=== PATIENT | female | born 1995 | race Caucasian/White ===

== ENCOUNTER 2023-09-12 07:24 | Inpatient (IN) ==
[2023-09-12] MEDS ORDERED: OXYTOCIN 30 UNITS/NSS 30 UNITS/500 ML BAG IV PRN ×2 (08:21→22:14)
[2023-09-12] MEDS ORDERED: CALCIUM CARBONATE 500 MG CHEWABLE TAB PO PRN (08:21)
[2023-09-12] MEDS ORDERED: LIDOCAINE 1% LOCAL 20 ML VIAL INFIL PRN (08:21)
[2023-09-12] MEDS ORDERED: ACETAMINOPHEN 325 MG TAB PO PRN ×2 (08:21→22:14)
[2023-09-12 08:43] LABS: Hematocrit (blood only) 36.2 % (37.0-47.0); Hemoglobin 11.7 g/dl (12.0-16.0); Mean Corpuscular Hemoglobin 27.1 pg (25.0-34.0); Mean Corpuscular Hgb Conc 32.3 g/dL (32.0-36.0); Mean Platelet Volume 10.4 fL (9.4-12.4); Platelet Count 226 K/uL (130-400); RDW Coefficient of Variation 14.7 % (11.5-14.5); RDW Standard Deviation 44.8 fL (36.4-46.3); Red Blood Count 4.31 M/uL (4.20-5.40); White Blood Count 13.16 K/ul (4.8-10.8)
[2023-09-12] MEDS: DINOPROSTONE 10 MG INSERT PV ONE (08:48)
--- NOTE | 2023-09-12 08:54 | History & Physical Report ---
Date of Service September 12, 2023 Assessment & Plan (1) Post-term , 40-42 weeks of gestation: Plan: 28-year-old G1, P0 at 40 weeks and 2 days of gestation presenting today for induction of labor, Vital signs stable afebrile, heart rate reassuring, GBS positive, Cervix unfavorable, Discussed the findings and recommended cervical ripening with Cervidil, she accepted and it was placed in posterior fornix. Start penicillin in active labor, Continue to monitor closely, All questions were answered. (2) Obesity affecting in third trimester, antepartum: (3) GBS (group B Streptococcus carrier), +RV culture, currently : Admission and Anticipated Discharge Date Admission Date: September 12, 2023 History of Present Illness Primary Care Provider: NO PCP Patient is a 28-year-old G1, P0 at 40 weeks and 2 days of gestation who was scheduled for induction of labor for postdates and obesity during . Her has been uncomplicated except GBS positive. She denies medical problems, surgeries, history of STDs, tobacco/alcohol/drug use. She denies contractions, leakage of fluid, vaginal bleeding. She reports good movements. Allergies Allergy/AdvReac Type Severity Reaction Status Date / Time Sulfa (Sulfonamide Allergy Rash Verified 09/12/23 08:18 Antibiotics) Home Medications Medication Instructions Recorded Confirmed Type vits no.124-ferrous fum 1 tab PO DAILY 09/01/23 09/12/23 History 27 mg iron-folic acid 800 mcg tablet ( Vitamin) Patient History Medical History Collar bone fracture age 13 Surgical History Hx of tympanostomy tubes as a child [place] teeth removed age 16 Family History Grandmother (Maternal) Myocardial infarction Social History Smoking Status: Former smoker Tobacco Type: E-cigarettes / Vaping Hx Alcohol Use: No Hx Substance Use: No Preferred Language: Norwegian Communication Ability: Effective State Highway Police Officer Required: No Beliefs That Will Affect Care: None marital status: Single Current Living Situation: Significant Other Assistive Devices: None Review of Systems as per Subjective / HPI Physical Exam Constitutional: WD/WN, vitals as above well developed, well nourished and comfortable (Pleasant lady, smiling all the time) Gastrointestinal (Abdomen): normal bowel sounds, soft, nontender, no hepatosplenomegaly (Gravid, [place] 7 to 8 pounds) Genitourinary: normal external appearance OB Exam Abdomen: + vertex Manual OB Exam: + cervical dilation 1 cm, + cervical effacement 30% and + station -2 OB Exam Monitor Tracing: + external uterine monitor used and + category I Results & Data Vital Signs (Past 12 Hours) Vital Signs Temp Pulse Resp BP 09/12/23 08:19 107 H 09/12/23 08:19 141/87 H 09/12/23 08:03 96 H 09/12/23 08:03 127/86 09/12/23 07:49 36.5 C 109 H 22 130/87 09/12/23 07:47 109 H 130/87 Laboratory Results Lab Results 09/12/23 Range/Units 08:30 WBC 13.16 H (4.8-10.8) K/ul RBC 4.31 (4.20-5.40) M/uL Hgb 11.7 L (12.0-16.0) g/dl Hct 36.2 L (37.0-47.0) % MCV 84.0 (80.0-100.0) fL MCH 27.1 (25.0-34.0) pg MCHC 32.3 (32.0-36.0) g/dL RDW Std Deviation 44.8 (36.4-46.3) fL RDW Coeff of Royer 14.7 H (11.5-14.5) % Plt Count 226 (130-400) K/uL MPV 10.4 (9.4-12.4) fL
--- OUTSIDE RECORDS SUMMARY | 2023-09-12 09:43 | External Medical Summary | Summary of Care ---
Author Name Unknown Organization [facility] Address [address] [facility] [place] [address] Phone [phone] Care Team Providers Care Repairer Maintenance Building Name Role Phone Tracy Sim Primary Care Provider Reason for Visit * Reason Comments Return Visit Non Stress Test Encounter Details Date Type Department Care Team (Late st Contact Info) Description 09/01/2023 2:15 PM EDT Office Visit Gynecology/Obstetri cs [facility] [address] [place] [address] Arin Thomas PA-C [address] [place] [address] [place] [phone] [place] Non Stress Tests Ana Laura [address] [place] [phone] Encounter for supervision of normal first in third trimester*; Class II obesity; Current every day vaping; Group B streptococcal infection in Allergies Active Allergy Reactions Criticality Noted Date Comments Bactrim Flushing 01/17/2011 documented as of this encounter (statuses as of 09/01/2023) Medications Medication Sig Dispensed Refills Start Date End Date Status CLARITIN 10 MG PO TABS as needed 0 Active Complete Oral Capsule Therapy Pack Take by mouth. 0 Active Azelaic Acid 15 % External Gel (Finacea)Indications: Acne, unspecified acne type After skin is thoroughly washed and patted dry, gently but thoroughly massage a thin film of azelaic acid gel into the affected area twice daily 50 g 1 05/24/2023 Active Breast Pump Dispense double electric breast pump. Dx:Z39.1 1 Each 0 08/04/2023 Active documented as of this encounter (statuses as of 09/01/2023) Active Problems Problem Noted Date Diagnosed Date Group B streptococcal infection in Normal , first 02/07/2023 Class II obesity 02/07/2023 Overview: Pre-gravid BMI 35.78 Early glucola ordered Growth q4wks, NST weekly at 37 weeks Current every day vaping 02/07/2023 Overview: About 10 times day. Uses disposable vape pens. Recommended cessation in . Encouraged her to cut back and quit entirely. Transient alteration of awareness 01/10/2011 Estimated Date of Delivery Comme nts Yes 09/10/2023 Based on Ultraso und documented as of this encounter (statuses as of 09/01/2023) Immunizations Name Administration Dates Next Due TDAP (age 10 and older)(Boostrix) 06/19/2023 documented as of this encounter Social History Tobacco Use Types Packs/Day Years Used Date Smoking Tobacco: Every Day Cigarettes Vaporizer Smokeless Tobacco: Never Alcohol Use Standard Drinks/Week Comments Not Currently 0 (1 standard drink = 0.6 oz pur e alcohol) Hunger Vital Sign Answer Date Recorded Within the past 12 months, y ou worried that your food would run out before you got the money to buy more. Patient declined Within the past 12 months, t he food you bought just didn't last and you didn't have money to get more. Patient declined [place] Depression Scale Answer Date Recorded [place] Depression Scale Total 4 08/16/2023 The thought of harming myself has occurred to me . Never 08/16/2023 Estimated Date of Delivery Comme nts Yes 09/10/2023 Based on Ultraso und Sex and Gender Information Value Date Recorded Sex Assigned at Female 01/23/2023 6:27 PM EDT Gender Identity Female 01/23/2023 6:27 PM EDT Sexual Orientation Straight 01/23/2023 6: 27 PM EDT Job Start Date Occupation Industry Not on file Not on file Not on file documented as of this encounter Last Filed Vital Signs Vital Sign Reading Time Taken Comments Blood Pressure - - Pulse - - Temperature - - Respiratory Rate - - Oxygen Saturation - - Inhaled Oxygen Concentration - - Weight 114.8 kg (253 lb) 09/01/2023 1:56 PM EDT Height - - Body Mass Index 42.1 08/16/2023 11:33 AM EDT documented in this encounter Progress Notes * Arin Thomas PA-C - 09/01/2023 2:32 PM EDT Erica Combs is a 28 year old female here for her routine OB appointment and NST at 38w5d Her Estimated Date of Delivery: 09/10/23 REVIEW OF SYSTEMS She affirms movement. She states she is still feeling regular movement, but feels the kicks have been visual associate in intensity. She expresses no concerns at this time. Denies vaginal bleeding, LOF,regular contractions, N/V, headaches, vision changes, chest pain, deep calf pain/swelling, RUQ pain. PHYSICAL EXAM Filed Vitals: 09/01/23 1356 Weight: 114.8 kg (253 lb) +FHT see NST result note ASSESSMENT assessment with Non-stress Test completed on 09/01/2023 at 38w5d weeks gestation for indication of class II obesity. Reviewed and interpreted strip with Dr. Nuzhat MD. heart baseline: 170 bpm Variability: Moderate Decelerations: Variable decelerations noted. Accelerations: present Contractions: None NST start time: 1347 NST stop time: 1419 NST strip reviewed, interpreted, and approved by OB provider, Arin Thomas PA-C and Dr. Nuzhat MD. Dr. Noland recommends patient to report to [facility] for continuous monitoring. On-call provider Dr. Cruz contacted and made aware of patient's arrival. [facility] notified. NST strip stored in clinic storage file ASSESSMENT/PLAN Normal , first (Primary) Class II obesity - Questionable NST today. Current every day vaping Group B streptococcal infection in Patient to report to [facility] for continued monitoring, RTO in 1 week for ASHWINI/NST as scheduled. Arin Thomas PA-C 09/01/2023 documented in this encounter Plan of Treatment Upcoming Encounters Date Type Department Care Team (Late st Contact Info) Description 09/08/2023 11:00 AM EDT Office Visit Gynecology/Obstetrics [facility] [address] [place] [id number] Khadijah Williamson CRNP [address] [place] [address] [place] Non Stress Tests Ana Laura [address] [place] [address] Health Maintenance Due Date Last Done Comments Pneumococcal Vaccine: Pediat rics (0 to 5 Years) and At-Risk Patients (6 to 64 Years) (1 of 2 - PCV) 2000 Depression Screening 2006 Hepatitis B (1 of 3 - 19+ 3- dose series) 2013 COVID-19 Vaccine ( - 2022-2 4 season) 2023 Influenza Vaccine (FLU shot) (Season Ended) 2024 Pap Smear 02/07/2026 02/07/2023 DTaP,Tdap,and Td Vaccines (2 - Td or Tdap) 06/19/2033 06/19/2023 GARDASIL-HPV IMMUNIZATION SERIES Aged Out No longer eligible based on patient's age to complete this topic MENINGOCOCCAL (MENACTRA/MENVEO) Aged Out No longer eligible based on patient's age to complete this topic documented as of this encounter Medical Devices Not on filedocumented as of this encounter Visit Diagnoses Diagnosis Encounter for supervision of normal first in third trimester- Primary Supervision of normal first Class II obesity Current every day vaping Group B streptococcal infection in Other specified maternal infectious and parasitic disease complicating , childbirth, or the puerperium, unspecified as to episode of care documented in this encounter Care Teams Repairer Maintenance Building Relationship Specialty Start Date End Date Tracy Sim DO PCP - General Pediatrics 12/23/10 documented as of this encounter
--- OUTSIDE RECORDS SUMMARY | 2023-09-12 09:43 | External Medical Summary | Summary of Care ---
Author Name Unknown Organization [facility] Address [address] [facility] [place] [address] Phone [phone] Care Team Providers Care Regulatory Affairs Assistant Name Role Phone Tracy Sim Primary Care Provider Reason for Visit * Reason Comments Return Visit Non Stress Test Encounter Details Date Type Department Care Team (Late st Contact Info) Description 09/08/2023 11:00 AM EDT Office Visit Gynecology/Obstetri cs [facility] [address] [facility] [place] [address] Khadijah Williamson CRNP [address] [place] [phone] [place] Non Stress Tests Ana Laura [address] [place] [address] Encounter for supervision of normal first in third trimester*; Class II obesity; Current every day vaping; Group B streptococcal infection in Allergies Active Allergy Reactions Criticality Noted Date Comments Bactrim Flushing 01/17/2011 documented as of this encounter (statuses as of 09/08/2023) Medications Medication Sig Dispensed Refills Start Date [...] as of this encounter (statuses as of 09/08/2023) Active Problems Problem Noted Date Diagnosed Date [...] as of this encounter (statuses as of 09/08/2023) Immunizations Name Administration Dates Next Due TDAP [...] have money to get more. Patient declined [place] Depression Scale Answer Date Recorded [place] Depression Scale Total 4 08/16/2023 The thought [...] Sign Reading Time Taken Comments Blood Pressure 116/78 09/08/2023 11:11 AM EDT Pulse - - Temperature - - Respiratory Rate - - Oxygen Saturation - - Inhaled Oxygen Concentration - - Weight 113.9 kg (251 lb) 09/08/2023 11:11 AM EDT Height - - Body Mass Index 41.77 08/16/2023 11:33 AM EDT documented in this encounter Progress Notes * Khadijah Williamson CRNP - 09/08/2023 10:33 AM EDT 39w5d Baby has been active. No regular ctx or bleeding. Increase in discharge, no ROM. Normal growth u/s on 08/15. Notes dry rash under L breast. Recommend OTC hydrocortisone. Discussed post-dates IOL; scheduled by nursing for first available on 09/20. Reviewed induction process. Requests cervical exam, closed. Ditch Inspector Documentation Provider requested military equipment specialist. Name of military equipment specialist: Ania King LPN ASSESSMENT assessment with Non-stress Test completed on 09/08/2023 at 39.5 weeks gestation for indicationof obesity heart baseline: 140 bpm Variability: Moderate Decelerations: absent Accelerations: present Contractions: Present occasionally NST start time: 1028 NST stop time: 1100 NST strip reviewed, interpreted, and approved by OB provider, APRYL Wilkins . NST strip stored in clinic storage file APRYL Wilkins documented in this encounter Nursing Notes * Ania King LPN - 09/08/2023 10:37 AM EDT 39w5d Denies vaginal bleeding/rom + movement Noticing a dry like rash under lt breast- not itchy. Has not tried anything OTC. documented in this encounter Plan of Treatment Upcoming Encounters Date Type Department Care Team (Late st Contact Info) Description 09/15/2023 10:15 AM EDT Office Visit Gynecology/Obstetrics [facility] [address] [place] [address] Mere Aguilar CRNP [address] [place] [address] [place], Non Stress Tests Ana Laura [address] [place] [address] Health Maintenance Due Date Last Done Comments [...] care documented in this encounter Care Teams Regulatory Affairs Assistant Relationship Specialty Start Date End Date Tracy Sim DO PCP - General Pediatrics 12/23/10 documented as of this encounter
[2023-09-12] MEDS: LACTATED RINGER'S 1,000 ML IV PRN (13:34)
[2023-09-12] MEDS: PENICILLIN GK 6 MU in DEXTROSE 5% 250 ML IV STA (13:39)
--- NOTE | 2023-09-12 13:52 | Obstetrical Progress Note ---
Date of Service September 12, 2023 Assessment & Plan Admission and Anticipated Discharge Date Admission Date: September 12, 2023 Subjective Patient is reevaluated. SROM'ed at 13:15, it was clear no ctxs, vb +FM VE: cervidil was in intiroitus, removed, cervix 1-2 cm/ 50%/ -2 FHR categ I Plan to start PCN and Oxytocin per protocol Continue to monitor closely. Results & Data Vital Signs (Past 12 Hours) Vital Signs Temp Pulse Resp BP 09/12/23 11:43 80 09/12/23 11:43 36.5 C 20 132/77 09/12/23 08:19 107 H 09/12/23 08:19 141/87 H 09/12/23 08:03 96 H 09/12/23 08:03 127/86 09/12/23 07:49 36.5 C 109 H 22 130/87 09/12/23 07:47 36.5 C 109 H 22 130/87
[2023-09-12] MEDS: OXYTOCIN 30 UNITS/NSS 30 UNITS/500 ML BAG IV PRN (15:22)
--- NOTE | 2023-09-12 16:30 | Anesthesiology Consultation ---
Date of Service September 12, 2023 Assessment & Plan Chart Review Chart Review: Acceptable Risk for Labor Epidural Consults Requested none ASA ASA2 Proposed Anesthesia Anesthesia Type: Labor Epidural Risk / Benefits Reviewed With: PT / POA / Parent / Guardian, Accepts Plan and Informed Consent Obtained History Height/Weight Height: 5 ft 5 in Weight: 113.852 kg Allergies Allergy/AdvReac Type Severity Reaction Status Date / Time Sulfa (Sulfonamide Allergy Rash Verified 09/12/23 08:18 Antibiotics) Medications Home Medications Medication Instructions Recorded Confirmed Last Taken vits no.124-ferrous fum 1 tab PO DAILY 09/01/23 09/12/23 Unknown 27 mg iron-folic acid 800 mcg tablet ( Vitamin) Active Medications Generic Name Dose Route Start Last Admin Trade Name Freq PRN Reason Stop Dose Admin Lactated Ringer's 1,000 mls @ 150 mls/hr 09/12/23 08:21 09/12/23 13:34 Lr IV 09/14/23 08:20 150 mls/hr .Q6H40M PRN Administration L&D Protocol Protocol Oxytocin 30 units in 500 mls @ 2 mls/hr 09/12/23 13:43 09/12/23 15:22 Pitocin 30 Units/Nss IV 09/14/23 13:42 0.12 units/hr .Q24H PRN 2 mls/hr Labor Induction/Augmentation Administration Protocol 0.12 UNITS/HR Past Medical History Medical History Collar bone fracture age 13 Exercise / Class Metabolic Activity II 4-5 Yardwork/Stairs/Walk up hill Past Family History Family History Grandmother (Maternal) Myocardial infarction Past Surgical History Surgical History Hx of tympanostomy tubes as a child [place] teeth removed age 16 Past Anesthesia History No Hx of Anesthesia Complications and No Family Hx of Anesthesia Complications History of PONV No Hx of PONV and No Hx of Motion Sickness Social History Smoking Status: Former smoker Hx Alcohol Use: No Hx Substance Use: No Physical Exam Vital Signs Last Vital Signs Temp 97.7 F 09/12/23 11:43 Pulse 88 09/12/23 15:20 Resp 20 09/12/23 11:43 BP 137/80 09/12/23 15:20 ENMT Mouth: no dentition abnormality Thyromental Distance: > or= 3.5 Finger Breadths Mallampati Class: II Neck normal visual inspection Respiratory normal respiratory effort Auscultation: lungs clear to auscultation bilaterally Cardiovascular Rate/Rhythm: regular rate and regular rhythm Testing Laboratory Results 09/12/23 08:30 Blood Type A Positive 09/12/23 08:30 Blood Type Cancelled 09/12/23 08:30 Antibody Screen Cancelled 09/12/23 08:30 Antibody Screen NEGATIVE 09/12/23 08:30
--- NOTE | 2023-09-12 16:41 | Obstetrical Progress Note ---
Date of Service September 12, 2023 Assessment & Plan Admission and Anticipated Discharge Date Admission Date: September 12, 2023 Subjective Patient is reevaluated. She started to feel painful back pain with each contractions. Has been leaking clear fluids. She desires epidural for pain VE; 2/ 70%/ -2 FHR categ I [place] ctxs q 2-4 min, oxytocin is at 4 miu/min Continue to monitor closely Epidural for pain Results & Data Vital Signs (Past 12 Hours) Vital Signs Temp Pulse Resp BP 09/12/23 16:33 100 H 09/12/23 16:33 143/88 H 09/12/23 15:20 88 09/12/23 15:20 137/80 09/12/23 11:43 80 09/12/23 11:43 36.5 C 20 132/77 09/12/23 08:19 107 H 09/12/23 08:19 141/87 H 09/12/23 08:03 96 H 09/12/23 08:03 127/86 09/12/23 07:49 36.5 C 109 H 22 130/87 09/12/23 07:47 36.5 C 109 H 22 130/87
[2023-09-12] MEDS ORDERED: NALOXONE HCL 1 MG in SODIUM CHLORIDE 0.9% 1,000 ML IV PRN (16:49)
[2023-09-12] MEDS ORDERED: ePHEDrine sulfate 50 MG/ML AMP IV PRN (16:49)
[2023-09-12] MEDS ORDERED: diphenhydrAMINE 50 MG/ML VIAL IV PRN (16:49)
[2023-09-12] MEDS ORDERED: NALOXONE HCL 0.4 MG/1 ML VIAL/CARP IV PRN (16:49)
[2023-09-12] MEDS ORDERED: LIDOCAINE 2% MPF LOCAL 5 ML VIAL EPI PRN (16:49)
[2023-09-12] MEDS ORDERED: ONDANSETRON INJ 2 MG/ML 2 ML VIAL IV PRN (16:49)
[2023-09-12] MEDS ORDERED: fentANYL 2 MCG/ML BUPIVacaine 0.125%-NSS 100ML BAG EPI PRN (16:49)
[2023-09-12] MEDS ORDERED: BUPIVACAINE 0.25% PF 30 ML VIAL EPI PRN (16:49)
[2023-09-12] MEDS ORDERED: fentaNYL citrate PF 100 MCG/2 ML VIAL EPI PRN (16:49)
[2023-09-12] MEDS ORDERED: NALBUPHINE HCL 5 MG in SYRINGE 0 ML IV PRN (16:49)
[2023-09-12] MEDS ORDERED: SODIUM CHLORIDE 0.9% PF INJ 10 ML VIAL EPI PRN (16:49)
[2023-09-12] MEDS ORDERED: ROPIVACAINE 0.5% PF 5 MG/ML 20 ML VIAL EPI PRN (16:49)
[2023-09-12] MEDS: fentANYL 2 MCG/ML BUPIVacaine 0.125%-NSS 100ML BAG ONE (16:50)
[2023-09-12] MEDS: BUPIVACAINE 0.25% PF 30 ML VIAL ONE (16:50)
[2023-09-12] MEDS: LIDOCAINE 2%/EPINEPHRINE 1:200,000 20 ML PF ONE (16:50)
[2023-09-12] MEDS: BUPIVACAINE 0.25% PF 30 ML VIAL EPI STA (17:30)
[2023-09-12] MEDS: fentaNYL citrate PF 100 MCG/2 ML VIAL EPI STA (17:30)
[2023-09-12] MEDS: LIDOCAINE 2%/EPINEPHRINE 1:200,000 20 ML PF EPI STA (17:30)
[2023-09-12] MEDS: SODIUM CHLORIDE 0.9% PF INJ 10 ML VIAL ONE (17:30)
[2023-09-12] MEDS: fentaNYL citrate PF 100 MCG/2 ML VIAL ONE (17:30)
[2023-09-12] MEDS: SODIUM CHLORIDE 0.9% PF INJ 10 ML VIAL EPI STA (17:31)
[2023-09-12] MEDS: PENICILLIN GK 3 MU in DEXTROSE 5% 100 ML IV PRN (17:50)
[2023-09-12 18:14] LABS: Albumin Level 3.3 gm/dl (3.4-5.0); BUN Creatinine Ratio 12.7 (10-20); Bilirubin,Total 0.2 mg/dl (0.2-1.0); Calcium 9.1 mg/dl (8.6-10.3); Creatinine Clr Calc Pharmacy 165.9 ml/min; Est GFR (African American) 140.5 ml/min; Est GFR (Non-African American) 121.2 ml/min; Globulin 3.2 gm/dl (2.5-4.0); Potassium 3.9 mmol/L (3.5-5.1); Total Protein 6.5 gm/dl (6.0-8.3)
[2023-09-12 18:24] LABS: Creatinine Urine Random 133.6 mg/dl; Protein Creatinine Ratio Urine 0.1 (0-0.2); Total Protein Urine Random 17.3 mg/dl (0-11.9)
[2023-09-12] MEDS: ePHEDrine sulfate 50 MG/ML AMP ONE (19:10)
--- NOTE | 2023-09-12 20:16 | Obstetrical Progress Note ---
Date of Service September 12, 2023 Assessment & Plan Admission and Anticipated Discharge Date Admission Date: September 12, 2023 Subjective Patient is reevaluated. Feels well, no pain nor pressure VE; thin at lip, 9.5 cm/ +1 FHR categ I, mild early decels with quick spontaneous recovery Continue to monitor closely Will start pushing when she feels pressure Results & Data Vital Signs (Past 12 Hours) Vital Signs Temp Pulse Resp BP Pulse Ox 09/12/23 20:11 99 09/12/23 20:11 90 09/12/23 20:08 90 09/12/23 20:08 95 H 09/12/23 20:07 93 H 09/12/23 20:07 131/87 09/12/23 20:06 97 09/12/23 20:06 88 09/12/23 20:01 95 09/12/23 20:01 82 09/12/23 19:59 94 09/12/23 19:59 81 09/12/23 19:56 95 09/12/23 19:56 82 09/12/23 19:54 94 09/12/23 19:54 84 09/12/23 19:53 78 09/12/23 19:53 132/82 09/12/23 19:51 96 09/12/23 19:51 89 09/12/23 19:49 94 09/12/23 19:49 83 09/12/23 19:46 95 09/12/23 19:46 81 09/12/23 19:44 94 09/12/23 19:44 84 09/12/23 19:41 96 09/12/23 19:41 83 09/12/23 19:37 86 09/12/23 19:37 130/86 09/12/23 19:36 97 09/12/23 19:36 83 09/12/23 19:31 96 09/12/23 19:31 83 09/12/23 19:26 96 09/12/23 19:26 81 09/12/23 19:22 88 09/12/23 19:22 127/83 09/12/23 19:21 97 09/12/23 19:21 90 09/12/23 19:16 96 09/12/23 19:16 84 09/12/23 19:11 96 09/12/23 19:11 90 09/12/23 19:11 92 09/12/23 19:11 91 H 09/12/23 19:07 85 09/12/23 19:07 137/81 09/12/23 19:07 18 09/12/23 19:07 36.9 C 18 09/12/23 19:06 95 09/12/23 19:06 84 09/12/23 19:01 93 09/12/23 19:01 93 H 09/12/23 18:56 97 09/12/23 18:56 89 09/12/23 18:55 86 09/12/23 18:55 125/72 09/12/23 18:51 98 09/12/23 18:51 93 H 09/12/23 18:46 98 09/12/23 18:46 83 09/12/23 18:41 98 09/12/23 18:41 86 09/12/23 18:40 18 09/12/23 18:40 36.6 C 18 09/12/23 18:38 93 H 09/12/23 18:38 118/72 09/12/23 18:37 92 09/12/23 18:37 94 H 09/12/23 18:36 98 09/12/23 18:36 86 09/12/23 18:31 99 09/12/23 18:31 88 09/12/23 18:26 98 09/12/23 18:26 85 09/12/23 18:23 84 09/12/23 18:23 139/67 09/12/23 18:21 98 09/12/23 18:21 81 09/12/23 18:16 91 09/12/23 18:16 83 09/12/23 18:11 98 09/12/23 18:11 81 09/12/23 18:11 93 09/12/23 18:11 87 09/12/23 18:08 82 09/12/23 18:08 129/67 09/12/23 18:06 99 09/12/23 18:06 82 09/12/23 18:01 98 09/12/23 18:01 79 09/12/23 18:00 18 09/12/23 18:00 18 09/12/23 17:58 89 L 09/12/23 17:58 91 H 09/12/23 17:56 98 09/12/23 17:56 85 09/12/23 17:52 77 09/12/23 17:52 123/71 09/12/23 17:51 97 09/12/23 17:51 77 09/12/23 17:46 98 09/12/23 17:46 84 09/12/23 17:41 97 09/12/23 17:41 81 09/12/23 17:37 80 09/12/23 17:37 125/75 09/12/23 17:36 97 09/12/23 17:36 78 09/12/23 17:31 98 09/12/23 17:31 81 09/12/23 17:30 92 09/12/23 17:30 82 09/12/23 17:26 98 09/12/23 17:26 82 09/12/23 17:23 83 09/12/23 17:23 128/76 09/12/23 17:21 98 09/12/23 17:21 82 09/12/23 17:16 97 09/12/23 17:16 84 09/12/23 17:11 98 09/12/23 17:11 87 09/12/23 17:06 97 09/12/23 17:06 86 09/12/23 17:05 93 H 09/12/23 17:05 131/69 09/12/23 17:02 93 H 09/12/23 17:02 140/72 09/12/23 17:01 98 09/12/23 17:01 98 H 09/12/23 17:00 20 09/12/23 17:00 20 09/12/23 16:59 93 H 09/12/23 16:59 121/71 09/12/23 16:57 94 09/12/23 16:57 94 H 09/12/23 16:56 97 09/12/23 16:56 93 H 09/12/23 16:56 99 H 09/12/23 16:56 129/75 09/12/23 16:53 93 H 09/12/23 16:53 135/78 09/12/23 16:51 96 09/12/23 16:51 89 09/12/23 16:50 90 09/12/23 16:50 136/86 09/12/23 16:47 100 H 09/12/23 16:47 124/85 09/12/23 16:46 100 09/12/23 16:46 94 H 09/12/23 16:44 88 09/12/23 16:44 130/86 09/12/23 16:41 98 09/12/23 16:41 85 09/12/23 16:41 130/85 09/12/23 16:33 100 H 09/12/23 16:33 143/88 H 09/12/23 16:30 18 09/12/23 16:30 36.6 C 18 09/12/23 16:00 20 09/12/23 16:00 20 09/12/23 15:20 88 09/12/23 15:20 137/80 09/12/23 15:00 20 09/12/23 15:00 36.6 C 20 09/12/23 14:00 20 09/12/23 14:00 20 09/12/23 11:43 80 09/12/23 11:43 36.5 C 20 132/77 09/12/23 08:19 107 H 09/12/23 08:19 141/87 H
[2023-09-12] MEDS: MINERAL OIL 30 ML UDC ONE (21:40)
[2023-09-12] MEDS ORDERED: HYDROCORTISONE ACETATE 25 MG SUPP PR PRN (22:14)
[2023-09-12] MEDS ORDERED: oxyCODONE/ACETAMINOPHEN 5mg/325mg TAB PO PRN (22:14)
--- NOTE | 2023-09-12 22:18 | Delivery Summary ---
Vaginal Delivery Summary Date of Service September 12, 2023 Vaginal Delivery Summary Patient was found to be fully dilated and desires to push. She pushed for about 30 min and delivered the head and then shoulders spontaneously without traction. The baby was handed off to the mother. The cord was clampedx2 and cut at 1 minute. The vagina and perineum were checked and found to have a small 2nd degree perineal laceration. Rectal exam was done and noted good sphincter tone. The gloves were changes. The vaginal mucosa was repaired with 2/0 vicryl and skin on subcuticular fashion. The placenta was delivered spontaneously as intact and complete. The uterus was explored and found to be empty. QBL was 292 ml. The fundus was firm The baby was a viable female infant, Apgars 8/9, the weight is pending The mother and the baby tolerated the procedure well. No complications happened and I was present during whole procedure.
[2023-09-13] MEDS: IBUPROFEN 600 MG TAB PO PRN (00:02)
--- NOTE | 2023-09-13 02:26 | Anesthesia Procedure Note ---
Date of Service September 13, 2023 Anesthesia Post Epidural Note Vital Signs Vital Signs: Temp Pulse Resp BP Pulse Ox O2 Del Method 98.2 F 96 H 18 115/72 98 Room Air 09/13/23 00:09/13/23 00:09/13/23 00:09/13/23 00:25 09/13/23 00:09/13/23 00:25 Pain Intensity Abdomen: Pain Intensity: 2 Notes Mental Status: alert / awake / arousable and participated in evaluation Nausea / Vomiting: adequately controlled Pain: adequately controlled Airway Patency, RR, SpO2: stable & adequate BP & HR: stable & adequate Hydration State: stable & adequate Neuraxial Anesthesia: was administered and sensory block is resolving Anesthetic Complications: no major complications apparent and Pt Satisfied with anesthetic care Epidural: Removed without complications and With tip intact
[2023-09-13 06:46] LABS: Hematocrit (blood only) 32.1 % (37.0-47.0); Hemoglobin 10.4 g/dl (12.0-16.0); Mean Corpuscular Hemoglobin 27.2 pg (25.0-34.0); Mean Corpuscular Hgb Conc 32.4 g/dL (32.0-36.0); Mean Corpuscular Volume 83.8 fL (80.0-100.0); Mean Platelet Volume 10.8 fL (9.4-12.4); Platelet Count 214 K/uL (130-400); RDW Coefficient of Variation 14.9 % (11.5-14.5); RDW Standard Deviation 45.1 fL (36.4-46.3); Red Blood Count 3.83 M/uL (4.20-5.40); White Blood Count 20.47 K/ul (4.8-10.8)
[2023-09-13] MEDS: DOCUSATE SODIUM 100 MG CAP PO SCH (08:33)
[2023-09-13] MEDS: PRENATAL VITAMIN 1 TAB PO SCH (08:33)
[2023-09-13] MEDS: FERROUS SULFATE 325 MG TAB PO SCH (08:33)
--- NOTE | 2023-09-13 08:43 | Obstetrical Progress Note ---
Date of Service September 13, 2023 Assessment & Plan (1) Normal course: PPD #1 pt doing well anticipate dsich tomorrow Results & Data Vital Signs (Past 12 Hours) Vital Signs Temp Pulse Pulse Resp BP BP Pulse Ox 09/13/23 03:34 36.8 C 84 17 112/89 98 09/13/23 00:25 36.8 C 96 H 18 115/72 98 09/12/23 23:52 36.7 C 18 09/12/23 23:52 93 H 09/12/23 23:52 124/70 09/12/23 23:38 96 H 09/12/23 23:38 136/89 09/12/23 23:22 18 09/12/23 23:22 96 H 09/12/23 23:22 142/76 H 09/12/23 23:07 95 H 09/12/23 23:07 125/81 09/12/23 22:53 18 09/12/23 22:53 93 H 09/12/23 22:53 127/84 09/12/23 22:38 18 09/12/23 22:38 93 H 09/12/23 22:38 124/64 09/12/23 22:23 18 09/12/23 22:23 96 H 09/12/23 22:23 128/77 09/12/23 22:07 18 09/12/23 22:07 104 H 09/12/23 22:07 129/55 L 09/12/23 21:53 103 H 09/12/23 21:53 140/65 09/12/23 21:52 18 09/12/23 21:23 95 H 09/12/23 21:23 144/76 H 09/12/23 21:19 88 L 09/12/23 21:19 107 H 09/12/23 21:16 96 09/12/23 21:16 92 H 09/12/23 21:11 95 09/12/23 21:11 106 H 09/12/23 21:08 98 H 09/12/23 21:08 138/67 09/12/23 21:06 99 09/12/23 21:06 90 09/12/23 21:02 88 L 09/12/23 21:02 101 H 09/12/23 21:01 98 09/12/23 21:01 99 H 09/12/23 20:57 93 09/12/23 20:57 98 H 09/12/23 20:56 98 09/12/23 20:56 91 H 09/12/23 20:53 92 H 09/12/23 20:53 120/66 09/12/23 20:51 98 09/12/23 20:51 92 H 09/12/23 20:49 94 09/12/23 20:49 101 H 09/12/23 20:46 99 09/12/23 20:46 93 H 09/12/23 20:44 90 09/12/23 20:44 88 O2 Del Method 09/13/23 03:34 Room Air 09/13/23 00:25 Room Air 09/12/23 23:52 09/12/23 23:52 09/12/23 23:52 09/12/23 23:38 09/12/23 23:38 09/12/23 23:22 09/12/23 23:22 09/12/23 23:22 09/12/23 23:07 09/12/23 23:07 09/12/23 22:53 09/12/23 22:53 09/12/23 22:53 09/12/23 22:38 09/12/23 22:38 09/12/23 22:38 09/12/23 22:23 09/12/23 22:23 09/12/23 22:23 09/12/23 22:07 09/12/23 22:07 09/12/23 22:07 09/12/23 21:53 09/12/23 21:53 09/12/23 21:52 09/12/23 21:23 09/12/23 21:23 09/12/23 21:19 09/12/23 21:19 09/12/23 21:16 09/12/23 21:16 09/12/23 21:11 09/12/23 21:11 09/12/23 21:08 09/12/23 21:08 09/12/23 21:06 09/12/23 21:06 09/12/23 21:02 09/12/23 21:02 09/12/23 21:01 09/12/23 21:01 09/12/23 20:57 09/12/23 20:57 09/12/23 20:56 09/12/23 20:56 09/12/23 20:53 09/12/23 20:53 09/12/23 20:51 09/12/23 20:51 09/12/23 20:49 09/12/23 20:49 09/12/23 20:46 09/12/23 20:46 09/12/23 20:44 09/12/23 20:44
[2023-09-13] MEDS: DIPHTHER/TETAN/PERTUS Vaccine (Tdap, Adol/Adult) 0.5mL IM ONE (18:22)
[2023-09-13] MEDS: MEASLES, MUMPS & RUBELLA VIRUS VACCINE (MMR) 0.5ML VIAL SQ ONE (18:22)
[2023-09-13] MEDS: bisacodyL 5 MG TABEC PO SCH (20:35)
[2023-09-14 06:08] LABS: Basophils # (auto) 0.08 K/uL (0.00-0.20); Basophils % (auto) 0.5 %; Eosinophils # (auto) 0.29 K/uL (0.00-0.50); Eosinophils % (auto) 1.9 %; Hematocrit (blood only) 32.8 % (37.0-47.0); Hemoglobin 10.5 g/dl (12.0-16.0); Immature Granulocytes # (auto) 0.12 K/uL (0.01-0.20); Immature Granulocytes % (auto) 0.8 %; Lymphocytes # (auto) 3.26 K/uL (1.20-3.40); Lymphocytes % (auto) 21.2 %; Mean Corpuscular Hemoglobin 27.1 pg (25.0-34.0); Mean Corpuscular Volume 84.5 fL (80.0-100.0); Mean Platelet Volume 10.3 fL (9.4-12.4); Monocytes # (auto) 1.21 K/uL (0.11-0.59); Monocytes % (auto) 7.9 %; Neutrophils # (auto) 10.41 K/uL (1.40-6.50); Neutrophils % (auto) 67.7 %; Platelet Count 194 K/uL (130-400); RDW Coefficient of Variation 15.2 % (11.5-14.5); RDW Standard Deviation 46.2 fL (36.4-46.3); Red Blood Count 3.88 M/uL (4.20-5.40); White Blood Count 15.37 K/ul (4.8-10.8)
--- NOTE | 2023-09-14 07:47 | Obstetrical Progress Note ---
Date of Service September 14, 2023 Assessment & Plan (1) Normal course: Continue monitoring patient's breast complaint, consider diagnostic ultrasound outpatient Discharge home with follow-up in clinic Will give patient discharge instructions She voiced understanding and agreement with the plan. All questions answered in the room Subjective Ambulation: ambulating normally Voiding: no voiding problems Passing Gas:: Yes Diet Tolerance:: regular diet Lochia:: Small Feeding Type:: breast feeding Current Pain Level(1-10): 2 Pumping-not breast feeding. Complaining of a left breast rash for the last several weeks, felt like it was previously red and irritated due to rubbing, has now since been dry and skin flaking. But is not causing her any discomfort Wants to go home today Review of Systems All systems reviewed & are unremarkable except as noted in HPI & below Constitutional: + as per Subjective / HPI Physical Exam Constitutional WD/WN, vitals as above Respiratory normal respiratory effort, lungs clear to auscultation Cardiovascular RRR, no murmur, no edema Chest (Breasts) normal inspection/palpation of breasts Additional Comments: No obvious masses or lesions seen on examination of the breast. 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 Gastrointestinal (Abdomen) normal bowel sounds, soft, nontender, no hepatosplenomegaly Fundus below U Musculoskeletal no cyanosis or clubbing, extremities motor strength 5/5 Results & Data Vital Signs (Past 12 Hours) Vital Signs Temp Pulse Resp BP Pulse Ox O2 Del Method 09/14/23 00:35 36.6 C 94 H 18 123/72 97 Room Air Laboratory Results Laboratory Results WBC 15.37 K/ul (4.8-10.8) H 09/14/23 05:39 RBC 3.88 M/uL (4.20-5.40) L 09/14/23 05:39 Hgb 10.5 g/dl (12.0-16.0) L 09/14/23 05:39 Hct 32.8 % (37.0-47.0) L 09/14/23 05:39 MCV 84.5 fL (80.0-100.0) 09/14/23 05:39 MCH 27.1 pg (25.0-34.0) 09/14/23 05:39 MCHC 32.0 g/dL (32.0-36.0) 09/14/23 05:39 RDW Std Deviation 46.2 fL (36.4-46.3) 09/14/23 05:39 RDW Coeff of Royer 15.2 % (11.5-14.5) H 09/14/23 05:39 Plt Count 194 K/uL (130-400) 09/14/23 05:39 MPV 10.3 fL (9.4-12.4) 09/14/23 05:39 Immature Gran % (Auto) 0.8 % 09/14/23 05:39 Neut % (Auto) 67.7 % 09/14/23 05:39 Lymph % (Auto) 21.2 % 09/14/23 05:39 Cole % (Auto) 7.9 % 09/14/23 05:39 Eos % (Auto) 1.9 % 09/14/23 05:39 Baso % (Auto) 0.5 % 09/14/23 05:39 Neut # (Auto) 10.41 K/uL (1.40-6.50) H 09/14/23 05:39 Lymph # (Auto) 3.26 K/uL (1.20-3.40) 09/14/23 05:39 Cole # (Auto) 1.21 K/uL (0.11-0.59) H 09/14/23 05:39 Eos # (Auto) 0.29 K/uL (0.00-0.50) 09/14/23 05:39 Baso # (Auto) 0.08 K/uL (0.00-0.20) 09/14/23 05:39 Immature Gran # (Auto) 0.12 K/uL (0.01-0.20) 09/14/23 05:39 Sodium 133 mmol/L (136-145) L 09/12/23 17:27 Potassium 3.9 mmol/L (3.5-5.1) 09/12/23 17:27 Chloride 106 mmol/L (98-107) 09/12/23 17:27 Carbon Dioxide 18 mmol/L (21-32) L 09/12/23 17:27 Anion Gap 9 (3-11) 09/12/23 17:27 BUN 8 mg/dl (6-23) 09/12/23 17:27 Creatinine 0.63 mg/dl (0.6-1.2) 09/12/23 17:27 Est Cr Clr Drug Dosing 165.9 ml/min 09/12/23 17:27 Est GFR ( Amer) 140.5 ml/min 09/12/23 17:27 Est GFR (Non-Af Amer) 121.2 ml/min 09/12/23 17:27 BUN/Creatinine Ratio 12.7 (10-20) 09/12/23 17:27 Glucose 93 mg/dl (70-99(Fasting)) 09/12/23 17:27 Calcium 9.1 mg/dl (8.6-10.3) 09/12/23 17: Total Bilirubin 0.2 mg/dl (0.2-1.0) 09/12/23 17:27 AST 13 U/L (13-39) 09/12/23 17: ALT 9 U/L (7-52) 09/12/23 17:27 Alkaline Phosphatase 104 U/L (34-104) 09/12/23 17:27 Total Protein 6.5 gm/dl (6.0-8.3) 09/12/23 17:27 Albumin 3.3 gm/dl (3.4-5.0) L 09/12/23 17:27 Globulin 3.2 gm/dl (2.5-4.0) 09/12/23 17:27 Albumin/Globulin Ratio 1.0 (0.9-2) 09/12/23 17:27 Ur Random Creatinine 133.6 mg/dl 09/12/23 17:40 U Random Total Protein 17.3 mg/dl (0-11.9) H 09/12/23 17:40 Protein/Creatinin Ratio 0.1 (0-0.2) 09/12/23 17:40 Blood Type A Positive 09/12/23 08:30 Blood Type Cancelled 09/12/23 08:30 Antibody Screen Cancelled 09/12/23 08:30 Antibody Screen NEGATIVE 09/12/23 08:30
[2023-09-14] MEDS: BENZOCAINE 20% SPRY 85 APPLN/85 GM CAN EXT PRN (08:38)
[2023-09-14] MEDS ORDERED: bisacodyL 10 MG SUPP PR PRN (22:14)
== END 2023-09-14 11:15 | disposition home or self-care (01) | DRG 807 ==
LOC: 4S1 07:24 → 4E2 09-13 00:28